=== PATIENT | female | born 1995 | race Hispanic/Latino ===

== ENCOUNTER 2018-12-17 10:33 | Emergency (ER) | payer SELFPAY ==
[~2018-12-17] VITALS: Ht 165.1 cm; Wt 75.0 kg
[2018-12-17 11:14] LABS: HEMATOCRIT 42.3 % (37.0-47.0); HEMOGLOBIN 13.9 g/dl (12.0-16.0); IMMATURE GRANULOCYTES 0.4 % (0.0-5.0); MEAN CELL VOLUME 85.1 fL CALC (80.0-100.0); MEAN CORPUSCULAR HGB CONC 32.9 g/L CALC (32.0-36.0); NEUT# 9.89 thou/uL (2.00-7.15); RED BLOOD COUNT 4.97 mill/uL (4.20-5.60); RED CELL DISTRI WIDTH 13.4 % (11.5-15.5)
[2018-12-17 11:41] LABS: ALBUMIN 4.7 g/dL (3.2-5.0); ALKALINE PHOSPHATASE 91 u/l (38-126); ANION GAP 16 (6-22 (CALC)); BILIRUBIN, TOTAL 0.6 mg/dL (0.0-1.4); BUN 11 mg/dL (7-17); BUN/CREATININE RATIO 21 (12-20 (CALC)); CARBON DIOXIDE 24 mmol/l (22-30); CHLORIDE 102 mmol/l (95-108); CREATININE 0.5 mg/dL (0.5-1.0); GFR > 60 ML/MIN (>=60 (CALC)); GFR FOR AFR.AMER. > 60 ML/MIN (>=60 (CALC)); LIPASE 68 u/l (23-300); POTASSIUM 4.6 mmol/l (3.5-5.1); SGOT/AST 29 u/l (14-36); SODIUM 137 mmol/l (137-146); TOTAL PROTEIN 7.7 g/dL (6.3-8.2)
[2018-12-17 12:37] LABS: URINE BILIRUBIN - DIPSTICK NEGATIVE (NEGATIVE); URINE BLOOD DIPSTICK NEGATIVE (NEGATIVE); URINE COLOR YELLOW; URINE GLUCOSE - DIPSTICK NEGATIVE (NEGATIVE); URINE KETONE NEGATIVE (NEGATIVE); URINE NITRITE - DIPSTICK NEGATIVE (Negative); URINE PROTEIN - DIPSTICK NEGATIVE (NEG-TRACE); URINE SPECIFIC GRAVITY 1.015; URINE UROBILINOGEN - DIPSTICK 0.2 E.U./dL (0.2)
[2018-12-17 12:38] LABS: URINE LEUK ESTERASE SMALL (NEGATIVE)
[2018-12-17 12:46] LABS: URINE SQUAMOUS EPITHELIAL CELL FEW EPI/hpf (0-FEW)
[2018-12-17] MEDS ORDERED: KEFLEX500 M1 PO (12:52)
[2018-12-17] MEDS ORDERED: CLINICAL NUTRIENTS P PO (12:52)
[2018-12-17 13:00] VITALS: BP 118/75
== END 2018-12-17 13:09 | disposition home or self-care (01) | DRG 833 ==
LOC: ED 10:33
DX: O23.40 Unspecified infection of urinary tract in pregnancy, unspecified trimester (principal); Z3A.00 Weeks of gestation of pregnancy not specified

== ENCOUNTER 2019-04-03 19:26 | Emergency (ER) | payer SELFPAY ==
[~2019-04-03] VITALS: Ht 165.1 cm; Wt 72.0 kg
[~2019-04-03 19:26] MED LIST: CLINICAL NUTRIENTS P PO; KEFLEX500 M1 PO
[2019-04-03] MEDS ORDERED: AMOXICILLIN500 MG PO (22:40)
[2019-04-03] MEDS ORDERED: CLARITIN10 M1 PO (22:40)
[2019-04-03] MEDS ORDERED: ULTRAM50 M1 PO (22:40)
[2019-04-03 23:00] VITALS: BP 111/70
== END 2019-04-03 23:00 | disposition home or self-care (01) | DRG 153 ==
LOC: ED 19:26
DX: J02.9 Acute pharyngitis, unspecified (principal)

== ENCOUNTER 2020-03-28 19:26 | Emergency (ER) | payer SELFPAY ==
[~2020-03-28] VITALS: Ht 165.1 cm; Wt 75.0 kg
[~2020-03-28 19:26] MED LIST changes: +AMOXICILLIN500 MG PO; +CLARITIN10 M1 PO; +ULTRAM50 M1 PO
[2020-03-28 20:39] LABS: HEMATOCRIT 37.8 % (37.0-47.0); HEMOGLOBIN 12.4 g/dl (12.0-16.0); IMMATURE GRANULOCYTES 0.4 % (0.0-5.0); MEAN CELL VOLUME 81.8 fL CALC (80.0-100.0); MEAN CORPUSCULAR HGB 26.8 pG CALC (26.0-32.0); MEAN CORPUSCULAR HGB CONC 32.8 g/dL CAL (32.0-36.0); NEUT# 9.61 thou/uL (2.00-7.15); RED BLOOD COUNT 4.62 mill/uL (4.20-5.60); RED CELL DISTRI WIDTH 14.2 % (11.5-15.5)
[2020-03-28 21:13] LABS: ALBUMIN 4.3 g/dL (3.2-5.0); ALKALINE PHOSPHATASE 91 u/l (38-126); ANION GAP 12 (6-22 (CALC)); BUN 11 mg/dL (7-17); BUN/CREATININE RATIO 19 (12-20 (CALC)); CARBON DIOXIDE 24 mmol/l (22-30); CHLORIDE 102 mmol/l (95-108); CREATININE 0.6 mg/dL (0.5-1.0); GFR > 60 ML/MIN (>=60 (CALC)); GFR FOR AFR.AMER. > 60 ML/MIN (>=60 (CALC)); POTASSIUM 3.7 mmol/l (3.5-5.1); SGOT/AST 30 u/l (14-36); SODIUM 134 mmol/l (137-146)
[2020-03-28 21:18] LABS: BILIRUBIN, TOTAL 0.3 mg/dL (0.0-1.4)
[2020-03-28] MEDS ORDERED: ZOFRAN4 MG/TAB PO (23:16)
[2020-03-28 23:39] VITALS: BP 97/72
== END 2020-03-28 23:39 | disposition home or self-care (01) | DRG 833 ==
LOC: ED 19:26
PROVIDERS: Family Medicine
DX: O20.9 Hemorrhage in early pregnancy, unspecified (principal); O41.8X90 Other specified disorders of amniotic fluid and membranes, unspecified trimester, not applicable or unspecified; Z3A.00 Weeks of gestation of pregnancy not specified

== ENCOUNTER 2020-11-23 19:05 | Emergency (ER) | payer SELFPAY ==
[~2020-11-23] VITALS: Ht 165.1 cm; Wt 76.2 kg
[~2020-11-23 19:05] MED LIST changes: +ZOFRAN4 MG/TAB PO
[2020-11-23 20:12] LABS: URINE BILIRUBIN - DIPSTICK NEGATIVE (NEGATIVE); URINE BLOOD DIPSTICK SMALL (NEGATIVE); URINE COLOR YELLOW; URINE GLUCOSE - DIPSTICK NEGATIVE (NEGATIVE); URINE KETONE NEGATIVE (NEGATIVE); URINE NITRITE - DIPSTICK NEGATIVE (Negative); URINE PROTEIN - DIPSTICK NEGATIVE (NEG-TRACE); URINE SPECIFIC GRAVITY 1.015; URINE UROBILINOGEN - DIPSTICK 0.2 E.U./dL (0.2)
[2020-11-23 20:12] LABS: HEMATOCRIT 37.6 % (37.0-47.0); HEMOGLOBIN 11.7 g/dl (12.0-16.0); IMMATURE GRANULOCYTES 0.4 % (0.0-5.0); MEAN CELL VOLUME 79.3 fL CALC (80.0-100.0); MEAN CORPUSCULAR HGB 24.7 pG CALC (26.0-32.0); MEAN CORPUSCULAR HGB CONC 31.1 g/dL CAL (32.0-36.0); NEUT# 9.91 thou/uL (2.00-7.15); RED BLOOD COUNT 4.74 mill/uL (4.20-5.60)
[2020-11-23 20:22] LABS: URINE BACTERIA FEW hpf; URINE LEUK ESTERASE MODERATE (NEGATIVE); URINE SQUAMOUS EPITHELIAL CELL FEW EPI/hpf (0-FEW); URINE WBC 20-50 WBC/hpf (0-5)
[2020-11-23 20:27] LABS: ALBUMIN 4.7 g/dL (3.2-5.0); AMYLASE 103 u/l (30-110); BUN 12 mg/dL (7-17); BUN/CREATININE RATIO 18 (12-20 (CALC)); CHLORIDE 101 mmol/l (95-108); CREATININE 0.6 mg/dL (0.5-1.0); GFR > 60 ML/MIN (>=60 (CALC)); GFR FOR AFR.AMER. > 60 ML/MIN (>=60 (CALC)); LIPASE 141 u/l (23-300); POTASSIUM 4.1 mmol/l (3.5-5.1); SODIUM 140 mmol/l (137-146); TOTAL PROTEIN 8.2 g/dL (6.3-8.2)
[2020-11-23 20:28] LABS: ALKALINE PHOSPHATASE 171 u/l (38-126); ANION GAP 14 (6-22 (CALC)); BILIRUBIN, TOTAL 0.7 mg/dL (0.0-1.4); CARBON DIOXIDE 29 mmol/l (22-30); SGOT/AST 55 u/l (14-36)
[2020-11-23] MEDS ORDERED: TRAMADOL HCL50 MG PO (22:03)
[2020-11-23] MEDS ORDERED: BACTRIM DS1 TAB PO (22:03)
[2020-11-23 22:18] VITALS: BP 102/79
== END 2020-11-23 22:18 | disposition home or self-care (01) | DRG 392 ==
LOC: ED 19:05
PROVIDERS: Family Medicine
DX: R10.11 Right upper quadrant pain (principal); N39.0 Urinary tract infection, site not specified
CPT/HCPCS: Q9967

== ENCOUNTER 2024-09-14 13:53 | Emergency (ER) | payer SELFPAY ==
[~2024-09-14] VITALS: Ht 165.1 cm; Wt 82.0 kg
[~2024-09-14 13:53] MED LIST changes: +BACTRIM DS1 TAB PO; +TRAMADOL HCL50 MG PO
[2024-09-14 14:45] VITALS: BP 116/80
[2024-09-14 15:20] LABS: BASO% 0.5 % (0-3); EOS% 2.3 % (0-8); HEMATOCRIT 38.5 % (37.0-47.0); HEMOGLOBIN 12.3 g/dl (12.0-16.0); IMMATURE GRANULOCYTES 0.4 % (0.0-5.0); LYMPH% 24.4 % (15-41); MEAN CELL VOLUME 78.6 fL CALC (80.0-100.0); MEAN CORPUSCULAR HGB 25.1 pG CALC (26.0-32.0); MEAN CORPUSCULAR HGB CONC 31.9 g/dL CAL (32.0-36.0); MONO% 8.2 % (2-13); NEUT# 6.71 thou/uL (2.00-7.15); NEUT% 64.2 % (42-76); RED BLOOD COUNT 4.9 mill/uL (4.20-5.60)
[2024-09-14 15:32] LABS: ALBUMIN 4.8 g/dL (3.2-5.0); BILIRUBIN, TOTAL 0.8 mg/dL (0.02-1.3); CREATININE 0.7 mg/dL (0.5-1.0); POTASSIUM 4.5 mmol/l (3.5-5.1); TOTAL PROTEIN 8.2 g/dL (6.3-8.2)
[2024-09-14 15:39] LABS: URINE BLOOD DIPSTICK Large (NEGATIVE); URINE GLUCOSE - DIPSTICK Negative (NEGATIVE); URINE KETONE Negative (NEGATIVE); URINE LEUK ESTERASE Negative (NEGATIVE); URINE NITRITE - DIPSTICK Negative (Negative); URINE PROTEIN - DIPSTICK 100 mg/dL (NEG-TRACE); URINE SPECIFIC GRAVITY 1.025; URINE UROBILINOGEN - DIPSTICK 0.2 E.U./dL (0.2)
[2024-09-14 15:41] LABS: URINE COLOR Dark yellow
[2024-09-14 15:47] LABS: URINE RBC >100 RBC/hpf (0-5)
[2024-09-14 15:49] LABS: URINE SQUAMOUS EPITHELIAL CELL MODERATE EPI/hpf (0-FEW)
[2024-09-14 15:51] LABS: URINE BACTERIA FEW hpf
[2024-09-14] MEDS ORDERED: PROGESTERONE200 MG PO (16:34)
[2024-09-14 17:13] VITALS: BP 116/80
== END 2024-09-14 17:23 | disposition home or self-care (01) | DRG 761 ==
LOC: ED 13:53
PROVIDERS: Nurse Practitioner
DX: N93.8 Other specified abnormal uterine and vaginal bleeding (principal)